=== PATIENT | female | born 1960 | race Caucasian/White ===

== ENCOUNTER → 2019-11-20 16:19 | Outpatient (CLI) | payer OTHER, SELFPAY ==
--- NOTE | ~2019-11-20 | US_ITS ---
US renal BI 11/20/2019 16:41 Procedure: Realtime transabdominal ultrasound of the kidneys and bladder. Indication: Elevated creatinine levels. Comparison: No prior studies for comparison. Findings: Renal echotexture is normal bilaterally without hydronephrosis, contour deforming mass or r enal calculus. The right kidney measures 11.3 x 5.4 x 5.7 cm cm and left kidney measures 10.5 x 4.9 x 5.1 cm cm. There is a left renal cyst measuring 1.7 cm. Bladder within normal limits. Impression: 1: 1.7 cm left renal cyst. Otherwise, unremarkable pelvic ultrasound. Reviewed, dictated and finalized at location A. Impression: 1: 1.7 cm left renal cyst. Otherwise, unremarkable pelvic ultrasound.
== END ==
PROVIDERS: PCP Internal Medicine; Visit Provider Internal Medicine
DX: R79.89 Other specified abnormal findings of blood chemistry (principal); N28.1 Cyst of kidney, acquired
CPT/HCPCS: 76775

== ENCOUNTER → 2020-09-17 16:44 | Outpatient (CLI) | payer OTHER, SELFPAY ==
--- NOTE | ~2020-09-17 | MM_ITS ---
EXAMINATION: MM screening narayan BI w aristides HISTORY: Screening TECHNIQUE: Craniocaudal and mediolateral oblique 3-D tomosynthesis images were obtained and synthetic 2-D images were generated. CAD analysis was submitted and interpreted. COMPARISON: Comparison to multiple prior studies sequentially, with oldest reviewed study dated 04/2012. BREAST PARENCHYMAL COMPOSITION: There are scattered areas of fibroglandular density. FINDINGS: There is a developing mass in the upper outer quadrant of the right breast, middle third me asuring approximately 7 mm greatest dimension. The left breast is stable without evidence for maligna ncy. IMPRESSION: 1. Developing right breast mass, upper outer quadrant. 2. Additional mammographic views and possible breast ultrasound are recommended. BI-RADS Category 0: Incomplete: Needs additional imaging evaluation. Reviewed, dictated and finalized at location A. IMPRESSION: 1. Developing right breast mass, upper outer quadrant. 2. Additional mammographic views and possible breast ultrasound are recommended . BI-RADS Category 0: Incomplete: Needs additional imaging evaluation.
== END ==
PROVIDERS: PCP Internal Medicine; Visit Provider Obstetrics & Gynecology
DX: Z12.31 Encounter for screening mammogram for malignant neoplasm of breast (principal); R92.8 Other abnormal and inconclusive findings on diagnostic imaging of breast
CPT/HCPCS: 77063; 77067

== ENCOUNTER → 2020-10-19 07:42 | Outpatient (CLI) | payer OTHER, SELFPAY ==
--- NOTE | ~2020-10-19 | MMUS_ITS ---
EXAMINATION: MM diagnostic narayan RT w aristides, US breast RT limited HISTORY: Developing mass reported in right breast on screening mammogram of 09/17/2020 TECHNIQUE: Additional 3-D tomosynthesis images of the right breast were performed and synthetic 2-D i mages were generated. CAD analysis was submitted and interpreted. High resolution upper outer and low er-outer right breast ultrasound was performed. COMPARISON: 09/17/2020 bilateral digital screening mammogram FINDINGS: MAMMOGRAPHIC FINDINGS: There is an approximately 6 mm irregular mass in the mid to lower outer right breast, suspicious for malignancy. Circumscribed approximately 6 mm partially calcified mass in the anterior upper outer right breast is consistent with benign fibroadenoma. Circumscribed approximately 3 x 6.5 mm density with fatty hilus is likely a benign upper outer quadra nt intramammary lymph node. ULTRASOUND: At approximately 9:00 position 6 cm from the nipple there is an irregular hypoechoic mass measuring a pproximately 5 x 6.6 mm dimension. There appears to be some spiculation at the margin of the lesion. This lesion is suspicious for breast cancer. Ultrasound-guided biopsy is recommended. 10:00 8 cm from nipple: Parallel circumscribed 2.2 x 5.3 mm hypoechoic lesion, most consistent with b enign process. IMPRESSION: 1. Suspicious irregular spiculated approximately 6 mm mass, likely a small breast malignancy, at 9:00 6 cm from nipple 2. Ultrasound-guided biopsy is recommended BI-RADS category 4, suspicious findings. Dr. Coulter telephoned the report ultrasound guided biopsy recommendation on 10/19/[address] Zeng. Reviewed, dictated and finalized at location A. IMPRESSION: 1. Suspicious irregular spiculated approximately 6 mm mass, likely a small paras st malignancy, at 9:00 6 cm from nipple 2. Ultrasound-guided biopsy is recommended BI-RADS category 4, suspicious findings. Dr. Coulter telephoned the report ultrasound guided biopsy recommendation on 2020 [address] Zeng.
== END ==
PROVIDERS: PCP Internal Medicine; Visit Provider Internal Medicine
DX: R92.8 Other abnormal and inconclusive findings on diagnostic imaging of breast (principal)
CPT/HCPCS: 76642; 77061; 77065; G0279

== ENCOUNTER → 2021-12-03 09:54 | Outpatient (CLI) | payer OTHER, SELFPAY ==
--- NOTE | ~2021-12-03 | US_ITS ---
EXAMINATION: US renal BI DATE: 12/03/2021 10:26 INDICATION: Cyst of kidney, acquired TECHNIQUE: Multiple grayscale and Doppler ultrasound images of the kidneys were obtained. COMPARISON: 11/20/2019 FINDINGS: The right kidney measures 9.2 x 4.8 x 5.4 cm. The left kidney measures 9.1 x 4.6 x 4.3 cm. The kidney s demonstrate normal parenchymal echogenicity. There is no hydronephrosis. The bladder is not well fi lled. IMPRESSION: Unremarkable renal sonogram findings. Previously described left renal cyst was not detected. Reviewed, dictated and finalized at location K.
== END ==
PROVIDERS: PCP Internal Medicine; Visit Provider Internal Medicine
DX: N28.1 Cyst of kidney, acquired (principal)
CPT/HCPCS: 76775